=== PATIENT | female | born 1980 | race Caucasian/White ===

== ENCOUNTER 2018-01-27 21:47 | Inpatient (IN) | payer OTHER ==
[2018-01-27] MEDS ORDERED: ONDANSETRON 4 MG INJ IV (23:00)
[2018-01-27] MEDS ORDERED: NACL 0.9% 3 ML SYG IV (23:00)
[2018-01-27] MEDS ORDERED: ACETAMINOPHEN 325 MG TAB PO (23:00)
[2018-01-27 23:12] LABS: ADD MAN DIFF? NO
[2018-01-27 23:13] LABS: WHITE BLOOD COUNT 5.4 10^3/ul (4.8-10.8)
[2018-01-27 23:13] LABS: BASOPHILS % 0.4 % (0.0-2.0); EOSINOPHILS % 0.6 % (0.0-7.0); HEMATOCRIT 34.1 % (37.0-47.0); HEMOGLOBIN 11.4 g/dl (12.0-16.0); LYMPHOCYTES # 0.7 10^3/ul (0.8-2.9); LYMPHOCYTES % 13.2 % (15.0-51.0); MEAN CORPUSCULAR HEMOGLOBIN 31.8 pg (29.0-33.0); MEAN CORPUSCULAR HGB CONC 33.4 g/dl (32.0-37.0); MEAN PLATELET VOLUME 8.9 fl (7.4-10.4); MONOCYTE # 0.2 10^3/ul (0.3-0.9); MONOCYTES % 3.3 % (0.0-11.0); NEUTROPHIL # 4.5 10^3/ul (1.6-7.5); NEUTROPHILS % 81.9 % (39.0-77.0); PLATELET COUNT 217 10^3/UL (140-415); RED BLOOD COUNT 3.59 10^6/ul (4.20-5.40); RED CELL DISTRIBUTION WIDTH 11.6 % (11.5-14.5)
[2018-01-27 23:30] LABS: ANION GAP 14 (8-16); BLOOD UREA NITROGEN 12 mg/dl (7-20); CALCIUM 8.4 mg/dl (8.4-10.2); CARBON DIOXIDE 28 mmol/L (21-31); CHLORIDE 104 mmol/L (97-110); CREATININE 0.88 mg/dl (0.44-1.00); GLUCOSE 100 mg/dl (70-220); POTASSIUM 4.6 mmol/L (3.5-5.1); SODIUM 141 mmol/L (135-144)
[2018-01-27] MEDS: morphine 2 MG INJ IV (23:37)
[2018-01-28] MEDS: AMPICILLIN/SULB 1.5GM/NS (PMX) 50 ML IVPB ×4 (00:26→17:19)
[2018-01-28] MEDS: morphine 2 MG INJ IV ×3 (05:36→17:20)
[2018-01-28] MEDS ORDERED: CLINDAMYCIN 900 MG/D5W (PMX) 50 ML IVPB (06:00)
[2018-01-28 06:11] LABS: WHITE BLOOD COUNT 3.4 10^3/ul (4.8-10.8)
[2018-01-28 06:11] LABS: ABNORMAL IP MESSAGE 1; ADD MAN DIFF? NO; HEMATOCRIT 33.6 % (37.0-47.0); HEMOGLOBIN 11.2 g/dl (12.0-16.0); LYMPHOCYTES # 0.6 10^3/ul (0.8-2.9); LYMPHOCYTES % 17.2 % (15.0-51.0); MEAN CORPUSCULAR HEMOGLOBIN 30.9 pg (29.0-33.0); MEAN CORPUSCULAR HGB CONC 33.3 g/dl (32.0-37.0); MEAN CORPUSCULAR VOLUME 92.8 fl (82.0-101.0); MEAN PLATELET VOLUME 9.6 fl (7.4-10.4); MONOCYTE # 0.1 10^3/ul (0.3-0.9); MONOCYTES % 1.5 % (0.0-11.0); NEUTROPHIL # 2.7 10^3/ul (1.6-7.5); NEUTROPHILS % 80.7 % (39.0-77.0); PLATELET COUNT 235 10^3/UL (140-415); RED BLOOD COUNT 3.62 10^6/ul (4.20-5.40); RED CELL DISTRIBUTION WIDTH 11.4 % (11.5-14.5)
[2018-01-28 06:24] LABS: POSITIVE DIFF @See below
[2018-01-28 06:30] LABS: ALANINE AMINOTRANSFERASE 25 IU/L (13-69); ALBUMIN 3.7 g/dl (3.3-4.9); ALBUMIN/GLOBULIN RATIO 1.32; ALKALINE PHOSPHATASE 49 IU/L (42-121); ANION GAP 12 (8-16); ASPARTATE AMINO TRANSFERASE 18 IU/L (15-46); BILIRUBIN,INDIRECT 0.1 mg/dl (0-1.1); BILIRUBIN,TOTAL 0.1 mg/dl (0.2-1.3); BLOOD UREA NITROGEN 17 mg/dl (7-20); CALCIUM 8.9 mg/dl (8.4-10.2); CARBON DIOXIDE 28 mmol/L (21-31); CHLORIDE 105 mmol/L (97-110); CHOL/HDL RATIO 2.6 RATIO; CHOLESTEROL 118 mg/dl (100-200); CREATININE 0.69 mg/dl (0.44-1.00); GLUCOSE 133 mg/dl (70-220); HDL CHOLESTEROL 45 mg/dl (34-88); LDL CHOLESTEROL,CALCULATED 64 mg/dl; MAGNESIUM 1.7 mg/dl (1.7-2.5); POTASSIUM 4.4 mmol/L (3.5-5.1); SODIUM 141 mmol/L (135-144); TOTAL PROTEIN 6.5 g/dl (6.1-8.1); TRIGLYCERIDES 43 mg/dl (0-149)
[2018-01-28 06:59] LABS: THYROID STIMULATING HORMONE 0.297 MIU/L (0.465-4.680)
[2018-01-28 07:16] LABS: HEMOGLOBIN A1C 5.1 % (0-5.9)
[2018-01-28] MEDS: HYDROCODONE/APAP (5/325) TAB PO ×2 (09:03→14:18)
[2018-01-28] MEDS ORDERED: ONDANSETRON 4 MG INJ IV (12:00)
[2018-01-28] MEDS ORDERED: SUMATRIPTAN 50 MG TAB PO (12:00)
[2018-01-28] MEDS: FLUOXETINE 20 MG CAP PO (12:01)
[2018-01-28] MEDS: morphine LIQ (10 MG/5 ML) CUP PO (21:17)
[2018-01-29] MEDS: HYDROCODONE/APAP (5/325) TAB PO (00:24)
[2018-01-29] MEDS: AMPICILLIN/SULB 1.5GM/NS (PMX) 50 ML IVPB ×3 (00:24→12:06)
[2018-01-29 05:55] LABS: ADD MAN DIFF? NO
[2018-01-29 05:56] LABS: BASOPHILS % 0.3 % (0.0-2.0); EOSINOPHILS % 0.4 % (0.0-7.0); HEMATOCRIT 31.6 % (37.0-47.0); HEMOGLOBIN 10.4 g/dl (12.0-16.0); LYMPHOCYTES # 3.3 10^3/ul (0.8-2.9); MEAN CORPUSCULAR HEMOGLOBIN 31.2 pg (29.0-33.0); MEAN CORPUSCULAR HGB CONC 32.9 g/dl (32.0-37.0); MEAN CORPUSCULAR VOLUME 94.9 fl (82.0-101.0); MEAN PLATELET VOLUME 9.3 fl (7.4-10.4); MONOCYTE # 0.4 10^3/ul (0.3-0.9); MONOCYTES % 5.4 % (0.0-11.0); NEUTROPHIL # 4.2 10^3/ul (1.6-7.5); NEUTROPHILS % 52.6 % (39.0-77.0); PLATELET COUNT 248 10^3/UL (140-415); RED BLOOD COUNT 3.33 10^6/ul (4.20-5.40); RED CELL DISTRIBUTION WIDTH 11.7 % (11.5-14.5)
[2018-01-29] MEDS: morphine LIQ (10 MG/5 ML) CUP PO ×3 (06:12→15:27)
[2018-01-29 06:22] LABS: ANION GAP 12 (8-16); BLOOD UREA NITROGEN 10 mg/dl (7-20); CALCIUM 8.1 mg/dl (8.4-10.2); CARBON DIOXIDE 28 mmol/L (21-31); CHLORIDE 106 mmol/L (97-110); CREATININE 0.67 mg/dl (0.44-1.00); GLUCOSE 105 mg/dl (70-220); POTASSIUM 4.2 mmol/L (3.5-5.1); SODIUM 142 mmol/L (135-144)
[2018-01-29] MEDS: FLUOXETINE 20 MG CAP PO (08:49)
== END 2018-01-29 17:35 | disposition home or self-care (01) | DRG 603 ==
LOC: MS2 21:47
DX: L03.211 Cellulitis of face (principal); F32.9 Major depressive disorder, single episode, unspecified
CPT/HCPCS: 80048; 80053; 80061; 83036; 83735; 84443; 85025